=== PATIENT | female | born 1970 | race Caucasian/White ===

== ENCOUNTER 2016-12-24 07:30 | Emergency (ER) | payer BC ==
[2016-12-24 07:57] VITALS: BP 150/99
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
== END 2016-12-24 08:16 | disposition home or self-care (01) ==
LOC: ER 07:30
DX: S63.502A Unspecified sprain of left wrist, initial encounter (principal); V43.52XA Car driver injured in collision with other type car in traffic accident, initial encounter; W22.11XA Striking against or struck by driver side automobile airbag, initial encounter; Y93.9 Activity, unspecified; Y92.410 Unspecified street and highway as the place of occurrence of the external cause; Z72.0 Tobacco use